=== PATIENT | male | born 1995 | race Caucasian/White ===

== ENCOUNTER 2018-04-23 20:06 | Emergency (ER) | payer SELFPAY ==
[2018-04-23 20:28] VITALS: BP 136/76; PULSE 108; RESP 18; TEMP 36.7; O2SAT 99; BMI 24.1
[2018-04-23 20:31] VITALS: BP 136/76; PULSE 108; RESP 18; TEMP 36.7; O2SAT 99; BMI 24.1
[2018-04-23 20:33] VITALS: BP 136/76; PULSE 108; RESP 18; TEMP 36.7; O2SAT 99; BMI 24.1
--- NOTE | 2018-04-23 20:35 | DI.RAD.S_ITS ---
PROCEDURE: XR FINGER LT MIN 2V INDICATIONS: INJURY TO LEFT 3RD FINGER TECHNIQUE: AP hand, 2 views of the left third finger(s) acquired. COMPARISON: None. FINDINGS: Bones: Mildly displaced fracture of the distal tuft of the third digit. Soft tissues: No suspicious soft tissue calcifications. Soft tissue laceration overlies the third digit distally. IMPRESSION: Mildly displaced distal tuft fracture of third digit. Dictated by: Matt Aranda M.D. on 04/23/2018 at 20:48 Approved by: Matt Aranda M.D. on 04/23/2018 at 20:49
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
[2018-04-23] MEDS: TET,DIPH,PERTUSS(ACELL),VAC/PF 0.5 ML SYRINGE IM (22:18)
[2018-04-23] MEDS: cephALEXin 250 MG CAPSULE 500 MG PO (22:19)
[2018-04-23 23:29] VITALS: PULSE 97; RESP 18; O2SAT 98
== END 2018-04-23 23:30 | disposition home or self-care (01) ==
PROVIDERS: Emergency Provider Nurse Practitioner Family; Family Provider Family Medicine; PCP Family Medicine
DX: S62.633B Displaced fracture of distal phalanx of left middle finger, initial encounter for open fracture (principal); S61.303A Unspecified open wound of left middle finger with damage to nail, initial encounter; Z23 Encounter for immunization
CPT/HCPCS: 29130; 73140; 90471; 99283; 90715

== ENCOUNTER → 2018-11-15 10:18 | Outpatient (CLI) | payer MEDICAID, SELFPAY ==
--- NOTE | 2018-11-15 10:23 | DI.RAD.S_ITS ---
PROCEDURE: XR HAND RT MIN 3V INDICATIONS: pain TECHNIQUE: 3 views of the hand(s) acquired. COMPARISON: None. FINDINGS: Bones: There is a fracture of the distal right fifth metacarpal with volar angulation of the distal fracture fragment and overlying soft tissue edema. Carpal bones are normally aligned. No suspicious bony lesions. Soft tissues: No suspicious soft tissue calcifications. IMPRESSION: Right fifth metacarpal shaft fracture. Dictated by: Chapito Emery M.D. on 11/15/2018 at 11:54 Approved by: Chapito Emery M.D. on 11/15/2018 at 11:55
== END ==
PROVIDERS: PCP Family Medicine; Visit Provider Family Medicine
DX: M79.641 Pain in right hand (principal); S62.326A Displaced fracture of shaft of fifth metacarpal bone, right hand, initial encounter for closed fracture
CPT/HCPCS: 73130